=== PATIENT | female | born 1970 | race Caucasian/White ===

== ENCOUNTER 2022-01-01 18:26 | Observation (INO) | payer OTHER, SELFPAY ==
--- NOTE | ~2022-01-01 | US_ITS ---
US abdomen limited INDICATION: PROCEDURE: Realtime right upper abdominal ultrasound. COMPARISON: No prior studies for comparison. FINDINGS: The pancreas is normal without focal mass or pancreatic ductal dilation. Liver echotexture is normal without focal mass or intrahepatic biliary dilatation. There is normal directional flow i n the portal vein. The gallbladder is normal without stones, gallbladder wall thickening or pericholecystic fluid. Comm on bile duct measures 3 mm. No sonographic Lamb's sign. IMPRESSION: 1: Normal limited abdominal ultrasound. Reviewed, dictated and finalized at location B.
--- NOTE | ~2022-01-01 | CT_ITS ---
EXAMINATION: CTA BRAIN/CAROTID DATE: 01/01/2022 19:31 INDICATION: Right facial numbness and right arm numbness. TECHNIQUE: Computed tomographic angiography (CTA) of the head and neck was performed with 100 mL Omni paque-350 intravenous contrast. Multiplanar reconstructions and maximum intensity projection 3D-recon structions of the carotid arteries and of the intracranial arteries were created by the technologist on a separate workstation. Automated exposure control and iterative reconstruction technique were emp loyed.The dose-length product was 1142.65 mGy-cm. COMPARISON: None. FINDINGS: Carotid arteries: Normal caliber of the visualized aortic arch with no dissection. No evident atherosclerotic plaque al carlita the common, internal and external carotid arteries. There is 0% stenosis of the right and left ca rotid bulbs relative to normal distal artery lumen diameter (NASCET criteria). Bilateral vertebral ar teries are codominant with small amount of atherosclerotic plaque without hemodynamically significant stenosis along the extrarenal left vertebral artery. Likely benign 4 mm right thyroid nodule. Cervic al soft tissues are otherwise unremarkable. Visualized portions of the bilateral mid to upper lungs a re clear. Mild cervical spondylosis. Intracranial arteries There is no hemodynamically significant stenosis in the vertebral, basilar and internal carotid arter ies. Vertebral arteries are codominant. There are no aneurysms identified. Both A1 and P1 segments a re patent. Cerebral arterial arborization appears symmetric. No abnormally enhancing brain lesions i dentified. IMPRESSION: 1. No evident atherosclerotic disease along the bilateral carotid arteries with 0% stenosis of the le ft carotid bulbs relative to normal distal artery lumen diameter (NASCET criteria). 2. Normal cerebral CT angiogram with no significant stenosis, aneurysm or dissection. Reviewed, dictated and finalized at location A. IMPRESSION: 1. No evident atherosclerotic disease along the bilateral carotid arteries with 0% stenosis of the left carotid bulbs relative to normal distal artery lumen d iameter (NASCET criteria). 2. Normal cerebral CT angiogram with no significant stenosis, aneurysm or disse ction.
--- NOTE | ~2022-01-01 | MR_ITS ---
EXAMINATION: MR brain/brain stem wo con DATE: 01/02/2022 12:21 INDICATION: Paresthesias. TECHNIQUE: Magnetic resonance imaging (MRI) of the brain and brainstem was performed without intraven ous contrast. COMPARISON: Head CT 01/01/2022 FINDINGS: There are scattered areas of nonspecific increased T2-weighted signal intensity in the cere bral white matter and jase. There is no intracranial hemorrhage, acute infarction, or abnormal intrac ranial mass lesion. The ventricles are normal in size. The paranasal sinuses are clear. The orbits ar e normal. The mastoid air cells are normal. IMPRESSION: 1. Mild nonspecific cerebral white matter disease and pontine disease, which likely represents chroni c small vessel ischemic disease. Reviewed, dictated and finalized at location A. IMPRESSION: 1. Mild nonspecific cerebral white matter disease and pontine disease, which evon pacheco represents chronic small vessel ischemic disease.
--- NOTE | ~2022-01-01 | XR_ITS ---
EXAMINATION: XR chest 1V portable DATE: 01/01/2022 19:06 INDICATION: Stroke symptoms with headache and right arm weakness TECHNIQUE: frontal view of the chest was obtained. COMPARISON: Chest radiograph dated 08/04/2017 FINDINGS: The lungs remain clear with no focal airspace opacities, pulmonary edema, pleural effusion or pneumot horax. The cardiomediastinal silhouette is normal. Mild thoracic spondylosis. IMPRESSION: 1. No acute cardiopulmonary disease. Reviewed, dictated and finalized at location A.
--- NOTE | ~2022-01-01 | CT_ITS ---
EXAMINATION: CT brain wo con DATE: 01/01/2022 18:38 INDICATION: Stroke with headache and right arm weakness TECHNIQUE: Computed tomography (CT) of the head was performed without intravenous contrast. Sagittal and coronal reconstructions were performed. The mA was adjusted according to patient size. Iterative reconstruction technique was employed. The dose-length product was 605.33 mGy-cm. COMPARISON: None FINDINGS: No acute intracranial hemorrhage, acute infarction or abnormal extra axial fluid collection. There is mild scattered white matter hypoattenuation consistent with chronic small vessel ischemic disease. V entricles are normal and symmetric. No mass/mass effect. The orbits, paranasal sinuses and mastoid ai r cells are normal. IMPRESSION: 1. Mild scattered white matter hypoattenuation consistent with chronic small vessel ischemic disease. No acute intracranial process. Reviewed, dictated and finalized at location A. IMPRESSION: 1. Mild scattered white matter hypoattenuation consistent with chronic small ve ssel ischemic disease. No acute intracranial process.
--- NOTE | 2022-01-01 18:29 | ECG_ITS ---
Measurements Intervals [place] Rate: 81 P: 68 TN: 172 QRS: 21 QRSD: 94 T: 54 QT: 374 QTc: 436 Interpretive Statements SINUS RHYTHM BASELINE ARTIFACT- II, V5 NORMAL ECG NO PREVIOUS ECG AVAILABLE FOR COMPARISON Electronically Signed On 01-01-2022 20:17:30 CDT by Berto Oleary D.O.
[2022-01-01 18:37] VITALS: BP 217/134; PULSE 96; RESP 13; O2SAT 100
[2022-01-01 18:39] LABS: Glucose Point of Care 78 mg/dl (65-105)
[2022-01-01 19:03] LABS: Basophils Absolute Auto 0.1 K/mm3 (0.0-0.1); Basophils Percent Auto 1.4 % (0.2-1.2); Eosinophils Absolute Auto 0.1 K/mm3 (0-0.3); Eosinophils Percent Auto 1.6 % (0-4.4); Hematocrit 41.5 % (37.0-47.0); Hemoglobin 14.4 g/dL (12.0-15.0); Immature Granulocyte Absolute 0.01 K/mm3 (0.00-0.031); Immature Granulocyte Percent A 0.2 % (0-0.5); Lymphocytes Absolute Auto 2.52 K/mm3 (0.9-3.2); Lymphocytes Percent Auto 51.3 % (18.3-44.2); Mean Corpuscular HGB Conc 34.7 g/dl (32-36); Mean Corpuscular Hemoglobin 35.4 pg (26-34); Mean Platelet Volume 9.6 fl (7.4-10.4); Monocytes Absolute Auto 0.4 K/mm3 (0.1-0.6); Monocytes Percent Auto 7.5 % (2.6-8.5); Neutrophils Absolute Auto 1.9 K/mm3 (1.3-6.7); Platelet Count Result 200 k/mm3 (150-375); Red Blood Count 4.07 M/mm3 (4.2-5.4); Red Cell Distribution Width 12.5 % (11.5-14.5); White Blood Count 4.9 K/mm3 (4.5-10.0)
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
[2022-01-01 19:13] LABS: Alanine Aminotransferase 118 U/L (6-35); Albumin Level 5.2 g/dL (3.5-5.1); Alkaline Phosphatase 98 U/L (38-126); Anion Gap 18 mmol/L (8-16); Aspartate Amino Transferase 174 U/L (14-36); Bilirubin,Total 0.6 mg/dL (0.2-1.3); Blood Urea Nitrogen 10 mg/dL (7-17); Calcium 9.9 mg/dL (8.4-10.2); Carbon Dioxide 26 mmol/L (22-30); Chloride 98 mmol/L (98-107); Estimated CRCL calculation 95 ml/min; Estimated Glomerular Filt Rate > 60; Glucose 89 mg/dL (65-110); Potassium 3.6 mmol/L (3.4-5.0); Sodium 142 mmol/L (137-145)
[2022-01-01 19:18] LABS: INR 0.9; Prothrombin Time 12.2 Seconds (11.1-14.7)
[2022-01-01 19:19] LABS: Partial Thromboplastin Time 31.8 SECONDS (22.3-36.8)
[2022-01-01 19:24] LABS: Troponin I < 0.012 ng/mL (0.000-0.034)
[2022-01-01] MEDS: ASPIRIN 325 MG TABLET PO (20:23)
--- NOTE | 2022-01-01 21:37 | PM.IMHP ---
H&P: HPI History of Present Illness Date/Time: 01/01/22 21:37 Chief Complaint: paresthesias Narrative: This is a 51-year-old female with past medical history significant for hypertension however patient is not on any medications, adult attention deficit hyperactivity disorder on Adderall, tobacco dependence, alcohol abuse. patient presents to the emergency room after his she was at work when she had an episode of right arm numbness with tingling as well as the right side of her face went numb, she felt flushed as well, patient has been in her usual state of health up until this moment, denies any speech disturbance, any changes in vision, any focal weakness, no syncope, or near syncope, patient denies any chest pain, palpitations, no leg swelling, no pedal swelling, a states that she has been eating a lot of salt, denies any nausea, vomiting, abdominal pain. Preliminary workup was significant for MCV 102, AST/ALT 174/118, Alk-phos 98 total protein 9, albumin 5.2. a CT of the head was reported as: IMPRESSION: 1. Mild scattered white matter hypoattenuation consistent with chronic small vessel ischemic disease. No acute intracranial process. chest x-ray was reported as: IMPRESSION: 1. No acute cardiopulmonary disease. CTA of head and neck was reported as: IMPRESSION: 1. No evident atherosclerotic disease along the bilateral carotid arteries with 0% stenosis of the left carotid bulbs relative to normal distal artery lumen diameter (NASCET criteria). 2. Normal cerebral CT angiogram with no significant stenosis, aneurysm or dissection. Review of Systems Review of Systems: right-sided numbness tingling in of the arm and face ,flushed. Constitutional: Constitutional: Denies chills, Denies fatigue, Denies fever(s), Denies lethargy, Denies malaise, Denies night sweats, Denies poor appetite and Denies weakness Eyes: Eyes: Denies change in vision ENT: Denies dysphagia, Denies vertigo, Denies dizziness, Denies odynophagia and Denies disequilibrium Cardiovascular: Cardiovascular: Denies chest pain, Denies syncope, Denies edema, Denies irregular heart rhythm, Denies lightheadedness, Denies palpitations and Denies dyspnea on exertion Respiratory: Respiratory: Denies chest congestion, Denies cough, Denies excessive phlegm production, Denies pain on inspiration, Denies dyspnea and Denies dyspnea on exertion Gastrointestinal: Gastrointestinal: Denies abdominal pain, Denies dyspepsia, Denies heartburn, Denies nausea and Denies vomiting Genitourinary: Genitourinary: Denies dysuria Musculoskeletal: Musculoskeletal: Denies back pain, Denies myalgias, Denies arthralgias, Denies joint swelling and Denies muscle weakness Integumentary/Breasts: Skin/Breast: Denies rash Neurologic: Denies vertigo, Denies dizziness, Denies focal weakness, Reports numbness, Reports tingling and Reports paresthesias Psychiatric: Psychiatric: Reports no additional psychiatric complaints and Reports as per HPI Endocrine: Endocrine: Denies cold intolerance, Denies flushing, Denies heat intolerance, Denies polyphagia, Denies polydipsia and Denies palpitations Hematologic/Lymphatic: Hematologic/Lymphatic: Reports no additional hematologic/lymphatic complaints and Reports as per HPI Allergic/Immunologic: Allergic/Immunologic: Reports no additional allergic/immunologic complaints and Reports as per HPI PMFSH Past Medical History Medical History HTN (hypertension) Surgical History Surgical History S/P skin biopsy Social History Social History Smoking packs per day: 0.5 Smoking cigarettes per day: 10.0 Years smoked: 40 Smoking pack-years: 20.00 Smoking status: Current every day smoker Tobacco type: cigarettes Alcohol intake: current Drinks per week: 5 Substance use: nevphuc
[2022-01-01 22:00] VITALS: BP 189/109; PULSE 86; RESP 18; TEMP 36.9; O2SAT 95
[2022-01-01 22:05] VITALS: BMI 21.8
[2022-01-01 22:25] VITALS: PULSE 89
--- NOTE | 2022-01-01 22:28 | PC.NURSE ---
This patient, Erin Tatum, was admitted to Medical Room 340-01. Patient/family oriented to hospital policies and general routines including ID bracelet, bed and alarms, visiting hours, pain management, procedures, bathroom and other care routines, personal items, smoking policy, room service/diet, and visiting hours. Information on how to activate the Rapid Response Team has been discussed. Patient/Family are encouraged to report perceived risks to care and to ask questions if they do not understand what they are told or what they should do.
[2022-01-02] VITALS: PULSE 92
--- NOTE | 2022-01-02 | ECHO_ITS ---
Patient Info Name: Erin Tatum Age: 51 years : 1970 Gender: Female Ht: 65 in Wt: 131 lbs BSA: 1.65 m2 HR: 84 bpm BP: 159 / 90 mmHg Technical Quality: Good Exam Date: 01/02/2022 10:22 AM Exam Location: [facility] Patient Status: Outpatient Admit Date: 01/01/2022 Staff Ordering Physician: Theresa Gonzales MD Derrick Worker: Garth Lamb RDCS, RT Attending Provider: Meera Ross PA-C Referring Physician: Christian SEQUEIRA; Exam Type: CA echo doppler color flow Study Info Indications I10 - Essential (primary) hypertension Complete two-dimensional, color flow and Doppler transthoracic echocardiogram is performed. Strain analysis performed. Summary 1. Complete two-dimensional, color flow and Doppler transthoracic echocardiogram is performed. 2. Left ventricular chamber dimension is normal. 3. Left ventricular systolic function is normal, estimated at 60-65%. 4. The left ventricular diastolic function is grade I diastolic dysfunction. 5. E/e' 9 is minimally elevated. 6. Global longitudinal strain is mildly abnormal at -16.1%. Left Ventricle E/e' 9 is minimally elevated. Global longitudinal strain is mildly abnormal at -16.1%. Left ventricular chamber dimension is normal. Left ventricular systolic function is normal, estimated at 60-65%. The left ventricular diastolic function is grade I diastolic dysfunction. Right Ventricle Right ventricular chamber dimension is normal. Right ventricular systolic function is normal. Left Atria Left atrial chamber dimension is normal. Right Atria Right atrial chamber dimension is normal. Aortic Valve The aortic valve is trileaflet. There is no aortic valve stenosis. There is no aortic valve regurgitation. Pulmonic Valve There is no pulmonic regurgitation. Mitral Valve There is no mitral valve stenosis. There is no mitral valve regurgitation. Tricuspid Valve There is no tricuspid valve regurgitation. Pericardium/Pleural There is no pericardial effusion. Inferior Vena Cava Normal inferior vena cava with >50% collapse upon inspiration consistent with normal right atrial pressure, 5 mmHg. Aorta The aortic root size at the sinus of Valsalva is normal. Left Ventricular Outflow Tract Name Value Normal LVOT 2D LVOT Diameter 2.0 cm LVOT Doppler LVOT Peak Gradient 5 mmHg LVOT Mean Gradient 3 mmHg LVOT VTI 25 cm LVOT VTI/AV VTI Ratio 1.1 LVOT Stroke Volume 77 ml LVOT CO 6.1 l/min LVOT CI 3.7 l/min/m2 Mitral Valve Name Value Normal MV Doppler MV Decel Quay 364 cm/s2 MV PHT 55 ms MV
[2022-01-02 04:00] VITALS: PULSE 104
[2022-01-02 05:32] LABS: Ethanol 12 mg/dL (<10)
[2022-01-02 06:00] VITALS: BP 159/90; PULSE 88; RESP 18; TEMP 37; O2SAT 99
[2022-01-02 06:10] LABS: Appearance Urine Clear (Clear); Bilirubin Urine Negative (Negative); Blood Urine Negative (Negative); Color Urine Yellow (Yellow); Glucose Urine UA Negative (Negative); Ketones Urine Trace mg/dL (Negative); Leukocyte Esterase Ur Negative LEU/UL (Negative); Nitrate Urine Negative (Negative); Protein Urine Negative (Negative); Urobilinogen Urine 0.2 mg/dL (<2.0)
[2022-01-02 06:38] LABS: Bacteria Urine Trace /hpf; Mucus Urine Rare /lpf; RBC Urine 0-2 /hpf (0-2); WBC Urine 0-3 /hpf
[2022-01-02 06:40] LABS: Squamous Epithelial Cell Urine Rare /hpf (Few)
[2022-01-02 06:45] LABS: Add Urine Microscopic? YES
[2022-01-02 08:08] LABS: Hematocrit 39.4 % (37.0-47.0); Hemoglobin 13.5 g/dL (12.0-15.0); Mean Corpuscular HGB Conc 34.3 g/dl (32-36); Mean Corpuscular Hemoglobin 35.4 pg (26-34); Mean Corpuscular Volume 103.4 fl (80-100); Platelet Count Result 183 k/mm3 (150-375); Red Blood Count 3.81 M/mm3 (4.2-5.4); Red Cell Distribution Width 12.9 % (11.5-14.5); White Blood Count 4.1 K/mm3 (4.5-10.0)
[2022-01-02 08:13] LABS: Glucose Point of Care 106 mg/dl (65-105)
[2022-01-02 08:14] VITALS: O2SAT 95
[2022-01-02 08:16] LABS: Alanine Aminotransferase 100 U/L (6-35); Albumin Level 4.4 g/dL (3.5-5.1); Alkaline Phosphatase 77 U/L (38-126); Anion Gap 14 mmol/L (8-16); Aspartate Amino Transferase 140 U/L (14-36); Bilirubin,Total 0.5 mg/dL (0.2-1.3); Blood Urea Nitrogen 12 mg/dL (7-17); Calcium 9.6 mg/dL (8.4-10.2); Carbon Dioxide 24 mmol/L (22-30); Chloride 102 mmol/L (98-107); Estimated CRCL calculation 74 ml/min; Estimated Glomerular Filt Rate > 60; Glucose 92 mg/dL (65-110); Potassium 3.7 mmol/L (3.4-5.0); Sodium 140 mmol/L (137-145)
[2022-01-02 08:30] VITALS: PULSE 72
[2022-01-02] MEDS: ENOXAPARIN 40 MG/0.4 ML SYRINGE SUB-Q (09:15)
[2022-01-02 09:31] LABS: Hepatitis B Surface Antigen Negative (Negative)
[2022-01-02 09:37] LABS: HAV RESULT Negative (Negative); Hepatitis B Core IgM Result Negative (Negative)
[2022-01-02 09:49] LABS: Hepatitis C Virus Antibody Negative (Negative)
[2022-01-02 12:59] LABS: Glucose Point of Care 112 mg/dl (65-105)
[2022-01-02 14:00] VITALS: BP 155/84; PULSE 85; RESP 20; TEMP 36.7; O2SAT 98
--- NOTE | 2022-01-02 14:14 | WPDNEURCNPN ---
Assessment and Plan Assessment and plan (1) Right facial numbness: Code(s): R20.0 - Anesthesia of skin Status: Acute (2) Numbness and tingling in right hand: Code(s): R20.0 - Anesthesia of skin; R20.2 - Paresthesia of skin Status: Acute Assessment and Plan: Ms. Tatum is a 51 year old female with a history of HTN who presented with R facial and RUE numbness. MRI negative for acute stroke. CTA, EKG, surface echo all unremarkable. Symptoms likely secondary to TIA. - Continue ASA 81mg daily - Discussed importance of smoking cessation - No further inpatient work-up needed Consult date: 01/02/22 Time Seen: 14:14 Reason for consult: TIA HPI: Erin Tatum is a 51 year old female with a history of HTN, ADHD, smoking who presented from work yesterday with right face and upper extremity numbness. This occured while she was at work. Last known well was 3:30 PM on 01/01/22. She did not have any focal weakness, changes in her speech or vision. She was evaluated in [place] ED. She had an NIH score of [address] head and CTA were both unremarkable. tPA was not administered due to non-disabling symptoms. Her symptoms lasted about 2 hours. She had an MRI brain this morning that showed small vessel disease but no evidence of acute infarct. EKG and echo were unremarkable as well. She is currently on ASA. HgbA1c and lipid profile were within normal range. She denies any residual numbness today. Review of Systems Constitutional: Constitutional: Reports no additional constitutional complaints Eyes: Eyes: Reports no additional eye complaints ENT: Reports system reviewed and no additional complaints, except as documented Cardiovascular: Cardiovascular: Reports no additional cardiovascular complaints Respiratory: Respiratory: Reports no additional respiratory complaints Gastrointestinal: Gastrointestinal: Reports no additional gastrointestinal complaints Genitourinary: Genitourinary: Reports no additional female genitourinary complaints Musculoskeletal: Musculoskeletal: Reports no additional musculoskeletal complaints Integumentary/Breasts: Skin/Breast: Reports system reviewed and no additional complaints, except as docu Neurologic: Reports system reviewed and no additional complaints, except as documented Psychiatric: Psychiatric: Reports no additional psychiatric complaints [facility] Past Medical History Medical History HTN (hypertension) Surgical History Surgical History S/P skin biopsy Social History Social History Smoking packs per day: 0.5 Smoking cigarettes per day: 10.0 Years smoked: 40 Smoking pack-years: 20.00 Smoking status: Current every day smoker Tobacco type: cigarettes Alcohol intake: current Drinks per week: 5 Substance use: never Spiritual care concerns: No Meds Home Medications and Allergies Home Medications Medication Instructions Recorded Confirmed Type dextroamphetamine-amphetamine 20 20 mg PO TID 01/01/22 01/01/22 History mg tablet (Adderall) Allergies Allergy/AdvReac Type Severity Reaction Status Date / Time fluticasone Allergy Unknown Hives Verified 01/01/22 18:52 Vital Signs Vital Signs - 24 hr 01/01/22 18:37 01/01/22 22:25 01/01/22 22:00 Temperature 36.9 C Pulse Rate 96 89 86 Respiratory Rate 13 18 Blood Pressure 217/134 H 189/109 H Pulse Oximetry 100 95 Oxygen Delivery 01/01/22 22:36 01/02/22 00:00 01/02/22 04:00 Temperature Pulse Rate 92 104 H Respiratory Rate Blood Pressure Pulse Oximetry Oxygen Delivery Room Air 01/02/22 06:00 01/02/22 08:14 01/02/22 08:30 Temperature 37.0 C Pulse Rate 88 72 Respiratory Rate 18 Blood Pressure 159/90 H Pulse Oximetry 99 95 Oxygen Delivery Room Air 01/02/22 08:30
[2022-01-02 15:16] LABS: Hemoglobin A1C 5.1 % (<5.7); LDL Cholesterol Direct 64 mg/dL
[2022-01-02 15:26] LABS: Cholesterol 270 mg/dL (0-200); Triglycerides 111 mg/dL (<150)
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
[2022-01-02 15:55] LABS: HDL Direct 185 mg/dL
[2022-01-04 15:26] LABS: GGT 232 U/L (3-70)
[2022-01-07 06:45] LABS: Total Protein/Creatinine Ratio 121 mg/g creat (24-184)
== END 2022-01-02 16:47 | disposition home or self-care (01) ==
LOC: ANHED 20:22 → ANH3MED 22:54
PROVIDERS: Emergency Medicine; Physician Assistant; Admitting Provider Internal Medicine; Emergency Provider Emergency Medicine; PCP Internal Medicine; Visit Provider Family Medicine
DX: I16.1 Hypertensive emergency (principal); R74.8 Abnormal levels of other serum enzymes; R71.8 Other abnormality of red blood cells; D89.2 Hypergammaglobulinemia, unspecified; R20.0 Anesthesia of skin; R20.2 Paresthesia of skin; M25.519 Pain in unspecified shoulder; M54.2 Cervicalgia; R29.701 NIHSS score 1; R90.82 White matter disease, unspecified; I51.89 Other ill-defined heart diseases; G37.8 Other specified demyelinating diseases of central nervous system; F90.9 Attention-deficit hyperactivity disorder, unspecified type; F10.10 Alcohol abuse, uncomplicated; Y90.0 Blood alcohol level of less than 20 mg/100 ml; F17.210 Nicotine dependence, cigarettes, uncomplicated; Z79.899 Other long term (current) drug therapy
CPT/HCPCS: 36415; 70450; 70496; 70498; 70551; 71045; 76705; 80053; 80061; 80074; 80307; 81001; 82570; 82948; 82977; 83036; 84156; 84166; 84484; 85025; 85027; 85610; 85730; 93005; 93306; 96372; 99285; A9270; G0378; J1650; Q9967

== ENCOUNTER 2024-05-03 07:00 | Emergency (ER) | payer OTHER, SELFPAY ==
--- NOTE | ~2024-05-03 | CT_ITS ---
EXAMINATION: CT abdomen pelvis w con DATE: 05/03/2024 08:13 INDICATION: Lower abdominal pain with rectal bleeding TECHNIQUE: Computed tomography (CT) of the abdomen and pelvis was performed with 100 cc Omnipaque 350 intravenous contrast. The dose-length product was 230.36 mGy-cm. Automated exposure control and iter ative reconstruction technique were employed. COMPARISON: None. FINDINGS: Lung bases unremarkable. Heart size normal. No significant pleural or pericardial effusion. No vascular abnormality. Circumaortic left renal vein. Fatty infiltration of the liver. Gallbladder is present. The spleen, pancreas, adrenal glands and kid neys are unremarkable. No lymphadenopathy. Segmental thickening of the descending and sigmoid colon w ith surrounding fatty infiltration and fluid, consistent with colitis, most likely infectious or infl ammatory. Moderate free fluid in the pelvis. There are coarse calcifications along the margin of the uterus anteriorly, possibly exophytic fibroid changes. Normal appendix. No free air identified. IMPRESSION: 1. Thickened abnormal appearing colon involving the descending and sigmoid colon with surrounding inf lammation and fluid, consistent with colitis, most likely infectious/inflammatory. Reviewed, dictated and finalized at location A. [employer] IMPRESSION: 1. Thickened abnormal appearing colon involving the descending and sigmoid colo n with surrounding inflammation and fluid, consistent with colitis, most likely infectious/inflammatory.
--- OUTSIDE RECORDS SUMMARY | 2024-05-03 07:02 | XMS_ITS | Referral Summary ---
Author Organization [facility] Address [address] [place] [address] Care Team Providers Care White Metal Caster Name Role Phone Unavailable Primary Care Provider Unavailabl e Source Comments [facility],non-owned Affiliates and Associated Physician Practices is amultiple site organization consisting of ambulatory clinics and hospital sitesin [place], [place], [place] and [place]. This disclosure is being madepursuant to the Care Everywhere program and may not contain all information available regarding this patient. Last updated 17.[facility] [facility] Allergies No known active allergies Medications * Be aware that medications may not be up to date on this document. Alwaysverify current medications with the patient. Medication Sig Dispensed Refills Start Date End Date Status amphetamine-dextroamph etamine (ADDERALL) 20 MG tablet Take 20 mg by mouth every morning Active Social History Tobacco Use Types Packs/Day Years Used Date Smoking Tobacco: Every Day Cigarettes 0.5 20 Smokeless Tobacco: Never Sex and Gender Information Value Date Recorded Sex Assigned at Not on file Gender Identity Not on file Sexual Orientation Not on file Last Filed Vital Signs Vital Sign Reading Time Taken Comments Blood Pressure 145/92 09/06/2023 5:00 PM CDT Pulse 99 09/06/2023 2:33 PM CDT Temperature 36.9 ??C (98.4 ??F) 09/06/2023 2:33 PM CD T Respiratory Rate 18 09/06/2023 2:33 PM CDT Oxygen Saturation 98% 09/06/2023 4:13 PM CDT Inhaled Oxygen Concentration - - Weight 61.2 kg (135 lb) 09/06/2023 2:33 PM CDT Height 165.1 cm (5' 5 ) 09/06/2023 2:33 PM CDT Body Mass Index 22.47 09/06/2023 2:33 PM CDT Plan of Treatment Not on file
--- OUTSIDE RECORDS SUMMARY | 2024-05-03 07:02 | XMS_ITS | Clinical Summary ---
Author Organization [facility] Address [address] [place] [address] Care Team Providers Care Grocery Store Bagger Name Role Phone Unavailable Primary Care Provider Unavailabl e Source Comments [facility],non-owned Affiliates and Associated Physician Practices is amultiple site organization consisting of ambulatory clinics and hospital sitesin [place], [place], [place] and [place]. This disclosure is being madepursuant to the Care Everywhere program and may not contain all information available regarding this patient. Last updated 17.[employer] Allergies No known active allergies Medications * Be aware that medications may not be up to date on this document. Alwaysverify current medications with the patient. Medication Sig Dispensed Refills Start Date End Date Status amphetamine-dextroamph etamine (ADDERALL) 20 MG tablet Take 20 mg by mouth every morning Active Family History Medical History Relation Name Comments Cancer - Thyroid Father Cancer - Breast Sister Relation Name Status Comments Father Sister Social History Tobacco Use Types Packs/Day Years [...] 09/06/2023 2:33 PM CDT Plan of Treatment Health Maintenance Due Date Last Done Comments COLOGUARD (AGES 45-75) - COL ON CA SCREENING 1970 COLON MONITORING 1970 COLONOSCOPY - COLON CA SCREENING 1970 CT COLONOGRAPHY - COLON CA SCREENING 1970 Colorectal Cancer Screening 1970 FIT - COLON CA SCREENING 1970 FLEX SIG - COLON CA SCREENING 1970 LIPID TESTING 1970 PAP SMEAR 1970 HIV SCREENING 1985 HEPATITIS C SCREENING 06/26/1988 DTAP/TDAP/TD VACCINES (1 - Tdap) 1989 HEPATITIS B VACCINE (1 of 3 - 19+ 3-dose series) 1989 PNEUMOCOCCAL VACCINE 50+ (1 of 2 - PCV) 1989 PNEUMOCOCCAL VACCINE (1 of 2 - PCV) 1989 ZOSTER VACCINE (1 of 2) 2020 MAMMOGRAM 05/06/2023 05/06/2021 COVID-19 VACCINE (4 - 2023-2 5 season) 2023 03/02/2021, 06/18/2020, 05/27/2020 INFLUENZA VACCINE (#1) 2023 , 12/16/2019, 01/07/2015 DEPRESSION SCREENING 04/06/2024 HIB VACCINE Aged Out No longer eligi ble based on patient's age to complete this topic HPV VACCINE Aged Out No longer eligi ble based on patient's age to complete this topic MENINGOCOCCAL (Group B) VACCINE Aged Out No longer eligible b ased on patient's age to complete this topic MENINGOCOCCAL VACCINE Aged Out No antelmo bossman eligible based on patient's age to complete this topic
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
--- OUTSIDE RECORDS SUMMARY | 2024-05-03 07:02 | XMS_ITS | Clinical Summary ---
Author Organization [facility] Address [address] [place] [address]. [place], [place] [id number] [place] [address] Care Team Providers Care Ticket Collector Name Role Phone Dalia ORNELAS MD, Porsha Cote Primary Care Provider Allergies Active Allergy Reactions Criticality Noted Date Comments Neomycin Unknown Low 09/24/2017 Infection symptoms Silver Sulfadiazine Unknown Low 09/24/2017 Infection symptoms Medications amphetamine-dext roamphetamine 20 MG tablet Take 1 tablet (20 mg total) by mouth daily. Active multi vitamin/minerals (THERA-M ENHANCED) tablet Take 1 tablet by mouth daily. 30 tablet 09/24/2023 Active Active Problems Problem Noted Date Diagnosed Date Attention deficit hyperactiv ity disorder (ADHD), predominantly inattentive type 05/13/2023 History of melanoma 01/22/2023 Dyslipidemia 02/04/2021 Tobacco use 02/04/2021 Hypertension Immunizations Name Administration Dates Next Due Influenza Adult (Generic) 12/16/2019 Family History Medical History Relation Comments Breast Cancer Sister 1 Cancer Sister 1 Breast Cancer Sister 2 Relation Status Comments Sister 1 Sister 2 Social History Tobacco Use Types Packs/Day Years Used Date Smoking Tobacco: Every Day Cigarettes 0.3 25 Smokeless Tobacco: Never Tobacco Cessation:Ready to Q uit: No; Counseling Given: Yes Alcohol Use Standard Drinks/Week Comments Yes 0 (1 standard drink = 0.6 oz pur e alcohol) occasionally PHQ-2 Answer Date Recorded Patient Health Questionnaire-2 Score 0 05/13/2023 Comments No Sex and Gender Information Value Date Recorded Sex Assigned at Not on file Legal Sex Female 7:38 PM CDT Gender Identity Not on file Sexual Orientation Not on file Last Filed Vital Signs Vital Sign Reading Time Taken Comments Blood Pressure 197/107 09/24/2023 8:11 PM CDT Pulse 103 09/24/2023 8:11 PM CDT Temperature 36.8 ??C (98.2 ??F) 09/24/2023 8:11 PM CD T Respiratory Rate 22 09/24/2023 8:11 PM CDT Oxygen Saturation 98% 09/24/2023 8:11 PM CDT Inhaled Oxygen Concentration - - Weight 60.3 kg (132 lb 15 oz) 09/24/2023 8:11 PM CDT Height 165.1 cm (5' 5 ) 09/24/2023 8:11 PM CDT Body Mass Index 22.12 09/24/2023 8:11 PM CDT Plan of Treatment Health Maintenance Due Date Last Done Comments Colorectal Cancer Screening Colonoscopy (10 Years) 1970 Annual Physical 1973 Pneumococcal Vaccine: Pediatrics (0 to 5 Years) and At-Risk Patients (6 to 64 Years) (1 of 2 - PCV) 1976 Hepatitis C 1988 DTaP, Tdap and Td Vaccines ( 1 - Tdap) 1989 Hepatitis B Vaccines (1 of 3 - 19+ 3-dose series) 1989 Cervical Cancer Screening Pa p Smear (Age 30 to 64) Every 3 Years 07/19/2011 07/18/2008 Cervical Cancer Screening Pa p with HPV Testing (Age 30 to 64) Every 5 Years 01/30/2020 01/29/2015, 04/20/2012 Cervical Cancer Screening wi th HPV 01/30/2020 Zoster Vaccines (1 of 2) 2020 Mammogram Screening 05/06/2023 05/06/2021 COVID-19 Vaccine (3 - 2023-2 5 season) 2023 06/18/2020, 05/27/2020 Influenza Adult (#1) 2024 12/16/2019 PHQ-2 (Physician [place]) 04/06/2024 05/13/2023 PHQ-2 (Physician [place]) 05/13/2024 05/13/2023 Meningococcal B Vaccine Aged Out No l onger eligible based on patient's age to complete this topic Meningococcal Vaccine Aged Out No antelmo bossman eligible based on patient's age to complete this topic RSV Immunizations Under 20 Months Aged Out No longer eligible b ased on patient's age to complete this topic Procedures Procedure Name Priority Date/Time Associated Diagnosis Comments MG SCREENING W SRIRAM EVELYN DIGI Routine 05/06/2021 3:27 PM SMALL STOCK FACER Encounter for screening mammogram for malignant neoplasm of breast OUTSIDE CYTOPATH CERV/VAG INTERPRET (PAP) 01/29/2015 OUTSIDE CYTOPATH CERV/VAG INTERPRET (PAP) (SCAN ORDER) 07/18/2008 from Last 3 Months or Most Recently Relevant to Health Maintenance Results * MG SCREENING W SRIRAM EVELYN DIGI (05/06/2021 3:27 PM SMALL STOCK FACER) Anatomical Region Laterality Modality Breast Bilateral Mammography 05/06/2021 4:27 PM SMALL STOCK FACER Impressions 05/06/2021 4:28 PM SMALL STOCK FACER IMPRESSION: No suspicious mammographic findings. Recommendation: 1. Routine Screening, Bilateral Assessment: ACR BI-RADS 2 - BENIGN FINDING(S) Comments: A negative or benign mammography report should not delay follow-up or biopsy of a clinically significant finding or palpable abnormality. Regions of dense breast tissue may obscure findings on mammogram. Ordered By: PORSHA VARNER II Interpreted By: Porsha Rouse MD, 05/06/2021 4:27 PM Narrative 05/06/2021 4:28 PM SMALL STOCK FACER Examination: Screening bilateral mammogram with 3-D tomosynthesis Clinical history: Positive family history of breast cancer. ??No present breast related complaints. Comparison: None Technique: Digital screening mammography of both breasts was performed. 3-D tomosynthesis technique was also performed. This study was read with the assistance of computer-aided detection system. Tissue density: The breast tissue is heterogeneously dense, which may obscure small masses. Findings: No suspicious masses, malignant appearing calcifications, skin thickening or other abnormalities are present. ??No significant change from the prior exam. us Porsha Varner II, MD MAMMO Final R esult * OUTSIDE CYTOPATH VAG/CERV PAP WITH HPV (01/29/2015) 01/29/2015 Narrative 01/29/2015 Ordered by an unspecified provider. us Documents Scanned SCANNING Final Result * OUTSIDE CYTOPATH CERV/VAG INTERPRET (PAP) (07/18/2008) 07/18/2008 Narrative 07/18/2008 Ordered by an unspecified provider. us Documents Scanned SCANNING Final Result from Last 3 Months or Most Recently Relevant to Health Maintenance Insurance Care Teams Ticket Collector Relationship Specialty Start Date End Date Porsha Varner II, MD [address] [place] [id number] PCP - General FAMILY PRACTICE 01/02/22
--- OUTSIDE RECORDS SUMMARY | 2024-05-03 07:02 | XMS_ITS | Patient Health Summary ---
Author Organization [facility] Address [address] [place] [address] Care Team Providers Care Neuropsychology Director Name Role Phone Unavailable Primary Care Provider Unavailabl e Note from [facility],non-owned Affiliates and Associated Physician Practices is amultiple site organization consisting of ambulatory clinics and hospital sitesin [place], [place], [place] and [place]. This disclosure is being madepursuant to the Care Everywhere program and may not contain all information available regarding this patient. Last updated 17.[facility] Allergies No known active allergies Medications * Be aware that medications may not be up to date on this document. Alwaysverify current medications with the patient. * amphetamine-dextroamphetamine (ADDERALL) 20 MG tablet Take 20 mg by mouth every morning Social History Tobacco Use Types Packs/Day Years [...] Mass Index 22.47 09/06/2023 2:33 PM CDT Procedures * CARDIAC EKG ORDER(Performed 09/08/2023) * TROPONIN-I HIGH SENSITIVE REFLEX 1HOUR(Performed 09/06/2023) * EKG 12-LEAD(Performed 09/06/2023) Performed for Fall, initial encounter * B-TYPE NATRIURETIC PEPTIDE(Performed 09/06/2023) * TROPONIN-I HIGH SENSITIVE BASELINE + 1HR(Performed 09/06/2023) * CBC W AUTO DIFFERENTIAL(Performed 09/06/2023) * COMPREHENSIVE METABOLIC PANEL(Performed 09/06/2023) * XR CHEST 1VW PORTABLE(Performed 09/06/2023) Performed for Fall, initial encounter * XR PELVIS 1 OR 2VW(Performed 09/06/2023) Performed for Fall, initial encounter * CT CERVICAL SPINE WO CONTRAST(Performed 09/06/2023) Performed for Fall, initial encounter * CT HEAD WO CONTRAST(Performed 09/06/2023) Performed for Fall, initial encounter * INFLUENZA A+B - POINT OF CARE (AMB)(Performed 02/25/2017) Performed for Acute URI * STREP A SCREEN - POINT OF CARE (AMB) STL(Performed 06/25/2016) Performed for Acute pharyngitis, unspecified etiology * DERMATOPATHOLOGY(Performed 02/12/2016) * DERMATOPATHOLOGY(Performed 10/24/2014) * DERMATOPATHOLOGY(Performed 10/17/2014) Results * CARDIAC EKG ORDER (09/08/2023 12:00 PM CDT) Narrative 09/08/2023 12:00 PM CDT Ordered by an unspecified provider. Scanned Document CARDIAC SERVICES ORD ERABLES * TROPONIN-I HIGH SENSITIVE REFLEX 1HOUR (09/06/2023 5:36 PM CDT) Troponin I High Sensitive 5 <=14 ng/L 09/06/2023 6:18 PM CDT [facility] Delta Troponin I HS 09/06/2023 6:18 PM CDT [facility] Comment:Delta value intentio honey not calculated. Baseline to 1 hour specimen collection interval exceeded. Blood BLOOD SPECIMEN / Unknown Venipuncture / Unknown 09/06/2023 5:36 PM CDT 09/06/2023 5:41 PM CDT Chelsy Fish MD LAB - CHEMISTRY IQRA MCDANIEL Performing Organization Address [facility] Co de Phone Number [facility] [address] [place] [address], [place] [phone] * EKG 12-LEAD (09/06/2023 5:28 PM CDT) [facility] Ventricular Rate 85 BPM [facility] MUSE Atrial Rate 85 BPM [facility] MUSE P-R Interval 184 ms [facility] M[facility] QRS Duration ms 84 ms [facility] MUSE Q-T Interval ms 376 ms [facility] MUSE QTC Calculation (Bezet) 447 ms SL MUSE Calculated P [place] 72 degrees SL MUSE Calculated R [place] 48 degrees [facility] MUSE Calculated T [place] 59 degrees [facility] MUSE Interpretation EKG NORMAL SINUS RHYTHM POSSIBLE LEFT ATRIAL ENLARGEMENT BORDERLINE ECG NO PREVIOUS ECGS AVAILABLE Confirmed by JENNIFER WALLACE, MARTHA ([id number]) on 09/21/2023 9:08:42 AM [facility] 09/06/2023 5:28 PM CDT 09/21/2023 9:08 AM CDT Chelsy Fish MD ECG ORDERABLES Performing Organization Address [facility] de Phone Number [facility] * TROPONIN-I HIGH SENSITIVE BASELINE + 1HR (09/06/2023 4:44 PM CDT) [facility] Troponin I High Sensitive 4 <=14 ng/L 09/06/2023 5:22 PM CDT [facility] Blood BLOOD SPECIMEN / Unknown Venipuncture / Unknown 09/06/2023 4:44 PM CDT 09/06/2023 4:48 PM CDT Chelsy Fish MD LAB - CHEMISTRY IQRA MCDANIEL Performing Organization Address [facility] Co de Phone Number [facility] [address] [place] [address], [place] [phone] * (ABNORMAL) CBC W AUTO DIFFERENTIAL (09/06/2023 4:44 PM [facility]) [facility] WBC 4.9 4.0 - 10.7 x10E9/L 09/06/2023 4:57 PM [facility] RBC Count 3.98 3.90 - 5.20 x10E12/L 09/06/2023 4:57 PM [facility] Hemoglobin 13.7 11.9 - 15.8 g/dL 09/06/2023 4:57 PM [facility] Hematocrit 39.2 34.8 - 46.1 % 09/06/2023 4:57 PM [facility] MCV 98.5(H) 80.0 - 98.0 fL 09/06/2023 4:57 PM [facility] MCH 34.4(H) 26.7 - 33.6 pg 09/06/2023 4:57 PM [facility] MCHC 34.9 31.7 - 36.3 g/dL 09/06/2023 4:57 PM [facility] RDW-CV 12.2 11.3 - 14.8 % 09/06/2023 4:57 PM [facility] Platelet Count 149(L) 150 - 420 x10E9/L 09/06/2023 4:57 PM [facility] MPV 9.2 7.8 - 11.4 fL 09/06/2023 4:57 PM [facility] Neutrophil % 52.1 41.0 - 74.0 % 09/06/2023 4:57 PM [facility] Lymphocyte % 39.0 17.0 - 47.0 % 09/06/2023 4:57 PM [facility] Monocyte % 6.7 3.0 - 11.0 % 09/06/2023 4:57 PM [facility] Eosinophil % 1.0 0.0 - 7.0 % 09/06/2023 4:57 PM [facility] Basophil % 1.0 0.0 - 1.6 % 09/06/2023 4:57 PM [facility] Immature Granulocytes % 0.2 0.0 - 1.0 % 09/06/2023 4:57 PM CDT [facility] Neutrophil Absolute 2.56 1.60 - 7.50 x10E9/L 09/06/2023 4:57 PM CDT [facility] Lymphocyte Absolute 1.92 1.00 - 4.40 x10E9/L 09/06/2023 4:57 PM CDT [facility] Monocyte Absolute 0.33 0.15 - 1.00 x10E9/L 09/06/2023 4:57 PM CDT [facility] Eosinophil Absolute 0.05 0.00 - 0.60 x10E9/L 09/06/2023 4:57 PM CDT [facility] Basophil Absolute 0.05 0.00 - 0.13 x10E9/L 09/06/2023 4:57 PM [facility] Blood BLOOD SPECIMEN / Unknown Venipuncture / Unknown 09/06/2023 4:44 PM CDT 09/06/2023 4:48 PM CDT Chelsy Fish MD LAB - HEMATOLOGY ORD ERABLES [facility] [address] [place] [address], [facility] [phone] * B-TYPE NATRIURETIC PEPTIDE (09/06/2023 4:44 PM CDT) BNP 35 <100 pg/mL 09/06/2023 5:21 PM CDT [facility] Comment: A decision threshold of 100 pg/mL has been demonstrated to provide the maximal combination of sensitivity, specificity and predictive value for the diagnosis of congestive heart failure (CHF). ??Virtually all patients with no evidence of CHF have BNP values less than 100 pg/mL. A BNP value greater than 100 pg/mL is consistent with the diagnosis of CHF in the appropriate clinical setting. In a study of 693 patients (male and female) with diagnosed CHF, the following values were determined based on the NYHA functional classification system: NYHA Functional Class ?Mean Valule (pg/mL) ? % >100 pg/mL ?I ?320 ? 58.1 ?II ? 432 ? 73.0 ?III ?656 ? 79.0 ?IV ?1635 ? 98.3 ? Blood BLOOD SPECIMEN / Unknown Venipuncture / Unknown 09/06/2023 4:44 PM CDT 09/06/2023 4:49 PM CDT Chelsy Fish MD LAB - CHEMISTRY IQRA MCDANIEL [facility] Organization Address [facility] de Phone Number [facility] [address] [place] [address], [place] [phone] * (ABNORMAL) COMPREHENSIVE METABOLIC PANEL (09/06/2023 4:44 PM CDT) BUN 9 7 - 26 mg/dL 09/06/2023 5:15 PM CDT [facility] Creatinine 0.57 0.56 - 0.96 mg/dL 09/06/2023 5:15 PM CDT [facility] Sodium 145 136 - 145 mmol/L 09/06/2023 5:15 PM CDT [facility] Potassium 3.6 3.5 - 4.5 mmol/L 09/06/2023 5:15 PM [facility] Chloride 109(H) 98 - 107 mmol/L 09/06/2023 5:15 PM [facility] CO2 23 22 - 29 mmol/L 09/06/2023 5:15 PM [facility] Glucose 93 70 - 115 mg/dL 09/06/2023 5:15 PM [facility] Calcium 9.1 8.4 - 10.2 mg/dL 09/06/2023 5:15 PM [facility] Protein Total 7.6 6.0 - 8.3 g/dL 09/06/2023 5:15 PM [facility] Albumin 4.1 3.4 - 5.0 g/dL 09/06/2023 5:15 PM [facility] Bilirubin Total 0.4 0.2 - 1.2 mg/dL 09/06/2023 5:15 PM [facility] Alkaline Phosphatase 89 40 - 150 U/L 09/06/2023 5:15 PM [facility] ALT 101(H) 5 - 55 U/L 09/06/2023 5:15 PM [facility] AST 131(H) 5 - 34 U/L 09/06/2023 5:15 PM [facility] Anion Gap 13 6 - 16 09/06/2023 5:15 PM [facility] BUN/Creatinine Ratio 16 7 - 23 09/06/2023 5:15 PM [facility] Osmolality Calculated 298(H) 275 - 295 mOsm/kg 09/06/2023 5:15 PM [facility] Albumin/Globulin Ratio 1.2 1.1 - 2.3 09/06/2023 5:15 PM [facility] eGFR by CKD-EPI >90 >=90 mL/min/1.7 3 m2 09/06/2023 5:15 PM [facility] Blood BLOOD SPECIMEN / Unknown Venipuncture / Unknown 09/06/2023 4:44 PM CDT 09/06/2023 4:48 PM T Chelsy Fish MD LAB - CHEMISTRY ORDE VIOLETA [facility] Organization Address City/State/ZIP Co de Phone Number [facility] [address] [place] [address], [facility] [phone] * XR CHEST 1VW PORTABLE (09/06/2023 4:15 PM CDT) Anatomical Region Laterality Modality Chest Radiographic Nuzhat ging 09/06/2023 4:35 PM CDT Narrative 09/07/2023 12:16 AM CDT PROCEDURE: ??XR CHEST 1VW PORTABLE, DATE/TIME OF EXAM: ??09/06/2023 4:15 PM, LOCATION ??[facility] INDICATION: W19.XXXA: Fall, initial encounter ADDITIONAL CLINICAL INFORMATION: Ordering Provider Reason For Exam: ???PTX, ? cardiomegaly Technologist Note: Additional: COMPARISON: None. FINDINGS/IMPRESSION: No focal consolidation, pneumothorax, or pleural effusion. The cardiomediastinal silhouette is normal. No displaced fractures identified. Report dictated by Vanesa Munoz Dr, MD (residential care officer). Luis Angel Lezama MD have personally reviewed and interpreted this examination/study. > Interpreting Provider: Luis Angel Cabral MD on 09/07/2023 12:16 AM Procedure Note Luis Angel Cabral MD - 09/07/2023 PROCEDURE: XR CHEST 1VW PORTABLE, DATE/TIME OF EXAM: 09/06/2023 4:15 PM, LOCATION [facility] INDICATION: W19.XXXA: Fall, initial encounter ADDITIONAL CLINICAL INFORMATION: Ordering Provider Reason For Exam: ?PTX, ? cardiomegaly Technologist Note: Additional: COMPARISON: None. FINDINGS/IMPRESSION: No focal consolidation, pneumothorax, or pleural effusion. The cardiomediastinal silhouette is normal. No displaced fracturesidentified. Report dictated by Vanesa Munoz Dr, MD (residential care officer). Luis Angel Lezama MD have personally reviewed and interpreted this examination/study. > Interpreting Provider: Luis Angel Cabral MD on 09/07/2023 12:16 AM Chelsy Fish MD DIAGNOSTIC IMAGING O RDERABLES * XR PELVIS 1 OR 2VW (09/06/2023 4:15 PM CDT) Anatomical Region Laterality Modality Pelvis Radiographic Nuzhat ging 09/06/2023 4:34 PM CDT Impressions 09/07/2023 12:17 AM CDT IMPRESSION: No acute fracture identified. Report dictated by Vanesa Munoz Dr, MD (residential care officer). Luis Angel Lezama MD have personally reviewed and interpreted this examination/study. > Interpreting Provider: Luis Angel Cabral MD on 09/07/2023 12:17 AM Narrative 09/07/2023 12:17 AM CDT PROCEDURE: ??XR PELVIS 1 OR 2VW, DATE/TIME OF EXAM: ??09/06/2023 4:15 PM, LOCATION ??[facility] INDICATION: W19.XXXA: Fall, initial encounter ADDITIONAL CLINICAL INFORMATION: Ordering Provider Reason For Exam: ???fx Technologist Note: Additional: COMPARISON: None. FINDINGS: No acute fracture is identified. The femoral heads appear well-seated within their respective acetabula. The pubic symphysis is intact. Bone density and texture are normal. The sacroiliac joints are normal. Procedure Note Luis Angel Cabral MD - 09/07/2023 PROCEDURE: XR PELVIS 1 OR 2VW, DATE/TIME OF EXAM: 09/06/2023 4:15 PM, LOCATION [facility] INDICATION: W19.XXXA: Fall, initial encounter ADDITIONAL CLINICAL INFORMATION: Ordering Provider Reason For Exam: ?fx Technologist Note: Additional: COMPARISON: None. FINDINGS: No acute fracture is identified. The femoral heads appear well-seated within their respective acetabula. The pubic symphysis is intact. Bone density and texture are normal. The sacroiliac joints are normal. IMPRESSION: No acute fracture identified. Report dictated by Vanesa Munoz Dr, MD (residential care officer). Luis Angel Lezama MD have personally reviewed and interpreted this examination/study. > Interpreting Provider: Luis Angel Cabral MD on 09/07/2023 12:17 AM Chelsy Fish MD DIAGNOSTIC IMAGING O RDERABLES * CT CERVICAL SPINE WO CONTRAST (09/06/2023 3:15 PM CDT) Anatomical Region Laterality Modality Spine Computed Tomogra phy 09/06/2023 3:54 PM CDT Impressions 09/06/2023 4:13 PM CDT IMPRESSION: 1.No acute intracranial hemorrhage, midline shift, or significant mass effect. 2.Large left parietal scalp soft tissue swelling/hematoma and overlaying the secretions.. 3.No evidence of acute fracture in the cervical spine. The report is dictated by Vanesa Munoz Dr, MD (residential care officer) I, Salomon Dumas MD have personally reviewed and interpreted this examination/study. > Interpreting Provider: Salomon Dumas MD on 09/06/2023 4:13 PM Narrative 09/06/2023 4:13 PM CDT PROCEDURE: ??CT HEAD WO CONTRAST, CT CERVICAL SPINE WO CONTRAST, DATE/TIME OF EXAM: ??09/06/2023 3:36 PM, LOCATION ??[facility] INDICATION: W19.XXXA: Fall, initial encounter EXAMINATION: 1.Computed tomography (CT) of the head without contrast 2.CT of the cervical spine without contrast ADDITIONAL CLINICAL INFORMATION: Ordering Provider Reason For Exam: ??Fall, hematoma to head (accession [id number]), fall, syncope (accession [id number]) Technologist Note: ??None. Additional: ??None. TECHNIQUE: CT of the head and cervical spine was performed without contrast according to standard protocol. CT dose reduction technique was used, including Automated Exposure Control. COMPARISON: No prior study is available for comparison at the time of this dictation. FINDINGS: Head: No acute intra- or extra-axial fluid collections are identified. There is mild cerebral volume loss with associated ex vacuo ventricular dilatation. The basilar cisterns are patent. No mass effect or midline shift is seen. The ansari-white matter differentiation is normal. Periventricular white matter hypoattenuation is indicative of chronic small vessel ischemic disease. There is vascular calcification of the carotid siphons. Fat density within the superior orbital fissures may represent bilateral lipomas. Tiny fat densities in the supravermian cistern compatible with a small lipoma, extending along the medial falx bilaterally. No acute calvarial fracture is identified. The orbits appear normal. The paranasal sinuses are clear. The mastoid air cells are clear. No soft tissue abnormality is identified. There is a large left parietal soft tissue swelling/hematoma measuring up to 0.0 cm in thickness, (3, image 25), with overlaying skin lacerations. No underlying osseous fracture is identified. Cervical spine: There is gentle cervical kyphosis. Vertebral bodies are normal in height without evidence of acute fracture. Other than middle atlantoaxial joint osteoarthritis, the craniocervical junction appears normal. There is mild degenerative disc disease. Borderline developmental cervical spinal canal stenosis and superimposed multilevel degenerative disc disease, without high-grade spinal canal stenosis. There are varying degrees of mild facet osteoarthritis. There are varying degrees of mild uncovertebral joint osteoarthritis with the same degree of neural foraminal stenosis at these levels. No soft tissue abnormality is identified. Procedure Note Salomon Dumas MD - 09/06/2023 PROCEDURE: CT HEAD WO CONTRAST, CT CERVICAL SPINE WO CONTRAST,DATE/TIME OF EXAM: 09/06/2023 3:36 PM, LOCATION [facility] INDICATION: W19.XXXA: Fall, initial encounter EXAMINATION: 1.Computed tomography (CT) of the head without contrast 2.CT of the cervical spine without contrast ADDITIONAL CLINICAL INFORMATION: Ordering Provider Reason For Exam: Fall, hematoma to head (accession [id number]), fall, syncope (accession [id number]) Technologist Note: None. Additional: None. TECHNIQUE: CT of the head and cervical spine was performed withoutcontrast according to standard protocol. CT dose reduction technique was used, including Automated Exposure Control. COMPARISON: No prior study is available for comparison at the time ofthis dictation. FINDINGS: Head: No acute intra- or extra-axial fluid collections are identified. Thereis mild cerebral volume loss with associated ex vacuo ventriculardilatation. The basilar cisterns are patent. No mass effect or midline shift isseen. The ansari-white matter differentiation is normal. Periventricular white matter hypoattenuation is indicative of chronic small vessel ischemic disease. There is vascular calcification of the carotid siphons. Fat density within the superior orbital fissures may represent bilateral lipomas. Tiny fat densities in the supravermian cistern compatible witha small lipoma, extending along the medial falx bilaterally. No acute calvarial fracture is identified. The orbits appear normal. Theparanasal sinuses are clear. The mastoid air cells are clear. No soft tissue abnormality is identified. There is a large left parietal soft tissue swelling/hematoma measuring up to 0.0 cm in thickness, (3, image 25),with overlaying skin lacerations. No underlying osseous fracture isidentified. Cervical spine: There is gentle cervical kyphosis. Vertebral bodies are normal in height without evidence of acute fracture. Other than middle atlantoaxial joint osteoarthritis, the craniocervical junction appears normal. There ismild degenerative disc disease. Borderline developmental cervical spinalcanal stenosis and superimposed multilevel degenerative disc disease, without high-grade spinal canal stenosis. There are varying degrees of mildfacet osteoarthritis. There are varying degrees of mild uncovertebral joint osteoarthritis with the same degree of neural foraminal stenosis atthese levels. No soft tissue abnormality is identified. IMPRESSION: 1.No acute intracranial hemorrhage, midline shift, or significant mass effect. 2.Large left parietal scalp soft tissue swelling/hematoma and overlaying the secretions.. 3.No evidence of acute fracture in the cervical spine. The report is dictated by Vanesa Munoz Dr, MD (residential care officer) Salomon Lezama MD have personally reviewed and interpretedthis examination/study. > Interpreting Provider: Salomon Dumas MD on 09/06/2023 4:13 PM Chelsy Fish MD CT ORDERABLES * CT HEAD WO CONTRAST (09/06/2023 3:15 PM CDT) Anatomical Region Laterality Modality Head Computed Tomogra phy 09/06/2023 3:54 PM CDT Impressions 09/06/2023 4:13 PM CDT IMPRESSION: 1.No acute intracranial hemorrhage, midline shift, or significant mass effect. 2.Large left parietal scalp soft tissue swelling/hematoma and overlaying the secretions.. 3.No evidence of acute fracture in the cervical spine. The report is dictated by Vanesa Munoz Dr, MD (residential care officer) Salomon Lezama MD have personally reviewed and interpreted this examination/study. > Interpreting Provider: Salomon Dumas MD on 09/06/2023 4:13 PM Narrative 09/06/2023 4:13 PM CDT PROCEDURE: ??CT HEAD WO CONTRAST, CT CERVICAL SPINE WO CONTRAST, DATE/TIME OF EXAM: ??09/06/2023 3:36 PM, LOCATION ??[facility] INDICATION: W19.XXXA: Fall, initial encounter EXAMINATION: 1.Computed tomography (CT) of the head without contrast 2.CT of the cervical spine without contrast ADDITIONAL CLINICAL INFORMATION: Ordering Provider Reason For Exam: ??Fall, hematoma to head (accession [id number]), fall, syncope (accession [id number]) Technologist Note: ??None. Additional: ??None. TECHNIQUE: CT of the head and cervical spine was performed without contrast according to standard protocol. CT dose reduction technique was used, including Automated Exposure Control. COMPARISON: No prior study is available for comparison at the time of this dictation. FINDINGS: Head: No acute intra- or extra-axial fluid collections are identified. There is mild cerebral volume loss with associated ex vacuo ventricular dilatation. The basilar cisterns are patent. No mass effect or midline shift is seen. The ansari-white matter differentiation is normal. Periventricular white matter hypoattenuation is indicative of chronic small vessel ischemic disease. There is vascular calcification of the carotid siphons. Fat density within the superior orbital fissures may represent bilateral lipomas. Tiny fat densities in the supravermian cistern compatible with a small lipoma, extending along the medial falx bilaterally. No acute calvarial fracture is identified. The orbits appear normal. The paranasal sinuses are clear. The mastoid air cells are clear. No soft tissue abnormality is identified. There is a large left parietal soft tissue swelling/hematoma measuring up to 0.0 cm in thickness, (3, image 25), with overlaying skin lacerations. No underlying osseous fracture is identified. Cervical spine: There is gentle cervical kyphosis. Vertebral bodies are normal in height without evidence of acute fracture. Other than middle atlantoaxial joint osteoarthritis, the craniocervical junction appears normal. There is mild degenerative disc disease. Borderline developmental cervical spinal canal stenosis and superimposed multilevel degenerative disc disease, without high-grade spinal canal stenosis. There are varying degrees of mild facet osteoarthritis. There are varying degrees of mild uncovertebral joint osteoarthritis with the same degree of neural foraminal stenosis at these levels. No soft tissue abnormality is identified. Procedure Note Salomon Dumas MD - 09/06/2023 PROCEDURE: CT HEAD WO CONTRAST, CT CERVICAL SPINE WO CONTRAST,DATE/TIME OF EXAM: 09/06/2023 3:36 PM, LOCATION [facility] INDICATION: W19.XXXA: Fall, initial encounter EXAMINATION: 1.Computed tomography (CT) of the head without contrast 2.CT of the cervical spine without contrast ADDITIONAL CLINICAL INFORMATION: Ordering Provider Reason For Exam: Fall, hematoma to head (accession [id number]), fall, syncope (accession [id number]) Technologist Note: None. Additional: None. TECHNIQUE: CT of the head and cervical spine was performed withoutcontrast according to standard protocol. CT dose reduction technique was used, including Automated Exposure Control. COMPARISON: No prior study is available for comparison at the time ofthis dictation. FINDINGS: Head: No acute intra- or extra-axial fluid collections are identified. Thereis mild cerebral volume loss with associated ex vacuo ventriculardilatation. The basilar cisterns are patent. No mass effect or midline shift isseen. The ansari-white matter differentiation is normal. Periventricular white matter hypoattenuation is indicative of chronic small vessel ischemic disease. There is vascular calcification of the carotid siphons. Fat density within the superior orbital fissures may represent bilateral lipomas. Tiny fat densities in the supravermian cistern compatible witha small lipoma, extending along the medial falx bilaterally. No acute calvarial fracture is identified. The orbits appear normal. Theparanasal sinuses are clear. The mastoid air cells are clear. No soft tissue abnormality is identified. There is a large left parietal soft tissue swelling/hematoma measuring up to 0.0 cm in thickness, (3, image 25),with overlaying skin lacerations. No underlying osseous fracture isidentified. Cervical spine: There is gentle cervical kyphosis. Vertebral bodies are normal in height without evidence of acute fracture. Other than middle atlantoaxial joint osteoarthritis, the craniocervical junction appears normal. There ismild degenerative disc disease. Borderline developmental cervical spinalcanal stenosis and superimposed multilevel degenerative disc disease, without high-grade spinal canal stenosis. There are varying degrees of mildfacet osteoarthritis. There are varying degrees of mild uncovertebral joint osteoarthritis with the same degree of neural foraminal stenosis atthese levels. No soft tissue abnormality is identified. IMPRESSION: 1.No acute intracranial hemorrhage, midline shift, or significant mass effect. 2.Large left parietal scalp soft tissue swelling/hematoma and overlaying the secretions.. 3.No evidence of acute fracture in the cervical spine. The report is dictated by Vanesa Munoz Dr, MD (residential care officer) I, Salomon Dumas MD have personally reviewed and interpretedthis examination/study. > Interpreting Provider: Salomon Dumas MD on 09/06/2023 4:13 PM [address]sy Fish MD CT ORDERABLES * INFLUENZA A+B - POINT OF CARE (AMB) (02/25/2017 3:25 PM [employer]) Influenza A Antigen Rapid Negative Negative Influenza B Antigen Rapid Negative Negative Influenza Internal Control present NEGATIVE - POSITIVE Influenza Lot Number [id number] Influenza Expiration Date 06/03/2018 Other NASOPHARYNGEAL SWAB / Unknown 02/25/2017 3:25 PM [employer] Margaux Cote Kashif [employer]PER[employer] [facility] - POINT OF CARE ORDERABLES * STREP A SCREEN (06/25/2016) Strep A Rapid POCT Negative Negative Strep A Internal Control Present Lot # [id number] Expiration Date Throat ENTIRE THROAT (SURFACE REGION OF NECK) / Unknown 06/25/2016 Tigre Subramanian [employer] [facility] - POINT OF CARE ORDERABLES * PATHOLOGY TISSUE FOR DERMATOLOGY (02/12/2016 12:00 AM [employer]) Only the most recent of3 resultswithin the time period is included. Result CASE: [id number] PATIENT: ANNIE TATUM PATHOLOGIC DIAGNOSIS: A. Midline frontal hairline: BLUE NEVUS, COMMON TYPE PRESENT AT MARGIN (see microscopic description) B. Right popliteal fossa: JUNCTIONAL MELANOCYTIC PROLIFERATION; NOT PRESENT AT SAMPLED MARGIN (see microscopic description and comment) CLINICAL DATA: A: R/O dys nevus in pt with hx of MM vs blue nevus. B: R/O dys nevus in pt with hx of MM. Check margins. GROSS DESCRIPTION: A: ??Received is one formalin filled container labeled with the patients name and designated midline frontal hairline. The specimen consists of a shave biopsy measuring [id number], the margin is inked green, [id number]. Jar 0. B: ??Received is one formalin filled container labeled with the patients name and designated right popliteal fossa. The specimen consists of a shave biopsy measuring [id number], the margin is inked green. Jar 0. MICROSCOPIC DESCRIPTION: SPECIMEN ??A Within the dermis there are oval, spindle-shaped and dendritic melanocytes with melanophages. This lesion is present at the margin of the specimen. Additional deeper sections were obtained and reviewed. SPECIMEN ??B Sections show a small junctional melanocytic proliferation. ??There is a lentiginous proliferation of melanocytes between irregular nests. ??Scattered melanocytes show evidence of upward migration within the epidermis, which are highlighted on a MART-1/Melan A. There is pigmented parakeratosis. The melanocytes are large and have a forrest cytoplasm. COMMENT: ??Although the architecture of this lesion is reassuring, the cytology is worrisome. ??As this lesion appears completely excised in the sampled sections, clinicopathologic correlation is recommended as to complete removal. Electronically signed out by Rajni Posey M.D. 02/15/2016 3:02:36PM [facility] Comment: Performed at: Dermatopathology Laboratory [facility] - Department of Dermatology [address] [place] [address] [place] [address] Phone number: [phone] FAX: [phone] 02/12/2016 02/13/2016 Jamar Correa MD LAB - PATHOLOGY/CYTO LOGY ORDERABLES [facility] [address] [place] [address]. [facility] [place] [id number], [facility] [phone]
[2024-05-03 07:06] VITALS: BP 151/102; PULSE 107; RESP 18; TEMP 36.4; O2SAT 99
[2024-05-03 07:50] VITALS: BP 145/100; PULSE 90; RESP 12; TEMP 36.4; O2SAT 98
--- NOTE | 2024-05-03 07:54 | ED_ITS ---
HPI - General Adult General Chief complaint: GI Bleed Stated complaint: bleeding from rectum Time Seen by Provider: 05/03/24 07:33 History of Present Illness HPI narrative: 53-year-old female presenting to the emergency department for evaluation and for nausea vomiting diarrhea and rectal bleeding. It is patient states she started having the nausea vomiting diarrhea yesterday. Patient reports his last night she started having rectal bleeding. Patient reports she is passing bright red blood per rectum. Patient denies any prior history of GI bleed. Patient is not on any blood thinners. Patient denies have any current abdominal pain. Related Data Home Medications ?Medication ?Instructions ?Recorded ?Confirmed ?Last Taken ?Type dextroamphetamine-amphetamine 20 20 mg PO TID 01/01/22 01/01/22 Unknown History mg tablet (Adderall) Allergies Allergy/AdvReac Type Severity Reaction Status Date / Time fluticasone Allergy Unknown Hives Verified 05/03/24 07:01 Review of Systems 2 Review of Systems: All systems reviewed & are unremarkable except as noted in HPI and below PMFSH Past Medical History Medical History (Updated 05/03/24 @ 09:16 by Roger Field MD) Tobacco abuse HTN (hypertension) Surgical History Surgical History S/P skin biopsy Social History Social History Smoking packs per day: 0.5 Smoking cigarettes per day: 10.0 Years smoked: 40 Smoking pack-years: 20.00 Smoking status: Current every day smoker Tobacco type: cigarettes Alcohol intake: current Drinks per week: 5 Substance use: never Spiritual care concerns: No Exam 2 Narrative: APPEARANCE: Well appearing, no pain, no distress, well-nourished. HEAD: normocephalic, atraumatic. EYES: PERRLA/EOMI, conjunctivae clear. NOSE: Normal no drainage EARS:TMS clear with good light reflex. THROAT: Pharynx clear, no exudate. NECK: Supple. No adenopathy, no masses. RESPIRATORY: Airway patent, respirations nonlabored. Clear to auscultation bilaterally, no rales, rhonchi, wheezing. CARDIOVASCULAR: Regular rate and rhythm without murmurs rubs or gallops. ABDOMINAL: Increased bowel sounds, lower abdominal tenderness to palpation MUSCULOSKELETAL: Moves all extremities. Strength/ROM intact, No edema, No calf tenderness. NEURO: Alert. Cranial nerves II through XII intact. Good gait. Good coordination SKIN: Warm, dry. Normal Color Rectal exam: Bright red blood, no external hemorrhoids. Course Vital Signs Vital signs: Vital Signs Temperature 97.6 F 05/03/24 07:06 Pulse Rate 107 H 05/03/24 07:06 Respiratory Rate 18 05/03/24 07:06 Blood Pressure 151/102 H 05/03/24 07:06 Pulse Oximetry 99 05/03/24 07:06 Oxygen Delivery Room Air 05/03/24 07:06 Temperature 97.8 F 05/03/24 09:05 Pulse Rate 73 05/03/24 09:05 Respiratory Rate 14 05/03/24 09:05 Blood Pressure 177/98 H 05/03/24 09:05 Pulse Oximetry 100 05/03/24 09:05 Oxygen Delivery Room Air 05/03/24 07:06 Medical Decision Making MDM Narrative Medical decision making narrative: 53-year-old female presented to the emergency department for evaluation for nausea vomiting diarrhea and lower abdominal pain and rectal bleeding. Patient is afebrile with no leukocytosis and a stable hemoglobin of 16.5, patient has an INR 0.9, T bili was 1.5 AST was a for ALT was 91 alk phosphate was not elevated, UA did show leukocyte esterase positive urine, elevated white blood cell 11-20 with many squamous and high bacteria, urine culture was ordered. CT scan did show evidence of colitis. Patient will be started on Augmentin for the colitis and patient will be provided Zofran for nausea control. Patient family updated results of the workup and they are comfortable plan for discharge and close follow-up. All questions concerns were addressed patient was well-appearing at time of discharge. Differential Diagnosis Differential Diagnosis: Colitis, diverticulitis, internal hemorrhoids, external hemorrhoids, upper GI bleed, melena Vital Signs Vital Signs: Vital Signs Temperature 97.6 F 05/03/24 07:06 Pulse Rate 107 H 05/03/24 07:06 Respiratory Rate 18 05/03/24 07:06 Blood Pressure 151/102 H 05/03/24 07:06 Pulse Oximetry 99 05/03/24 07:06 Oxygen Delivery Room Air 05/03/24 07:06 Temperature 97.8 F 05/03/24 09:05 Pulse Rate 73 05/03/24 09:05 Respiratory Rate 14 05/03/24 09:05 Blood Pressure 177/98 H 05/03/24 09:05 Pulse Oximetry 100 05/03/24 09:05 Oxygen Delivery Room Air 05/03/24 07:06 Lab Data Lab results reviewed: Yes I reviewed the patient's lab results. 05/03/24 08:14 05/03/24 08:07 Labs: Lab Results 05/03/24 05/03/24 05/03/24 Range/Units 07:51 08:04 08:07 WBC (4.5-10.0) K/mm3 RBC (4.2-5.4) M/mm3 Hgb (12.0-15.0) g/dL Hct (37.0-47.0) % MCV (80-100) fl MCH (26-34) pg MCHC (32-36) g/dl RDW (11.5-14.5) % Plt Count (150-375) k/mm3 MPV (7.4-10.4) fl Immature Gran % (Auto) (0-0.5) % Neut % (Auto) (45.5-73.1) % Lymph % (Auto) (18.3-44.2) % [place] % (Auto) (2.6-8.5) % Eos % (Auto) (0-4.4) % Baso % (Auto) (0.2-1.2) % Lymph # (Auto) (0.9-3.2) K/mm3 [place] # (Auto) (0.1-0.6) K/mm3 Eos # (Auto) (0-0.3) K/mm3 Baso # (Auto) (0.0-0.1) K/mm3 Abs Immat Gran (auto) (0.00-0.031) K/mm3 Absolute Neuts (auto) (1.3-6.7) K/mm3 Absolute Nucleated RBC (0.0-0.012) K/mm3 Nucleated RBC % (0.0-0.2) % PT 12.4 (11.1-14.7) Seconds INR 0.9 APTT 27.0 (22.3-36.8) Seconds Sodium 138 (137-145) mmol/L Potassium 3.4 (3.4-5.0) mmol/L Chloride 94 L (98-107) mmol/L Carbon Dioxide 32 H (22-30) mmol/L Anion Gap 12 (4-12) mmol/L BUN 8 (7-17) mg/dL Creatinine 0.83 0.90 (0.7-1.0) mg/dL Estim Creat Clear Calc 62 57 ml/min Estimated GFR > 60 > 60 (59 - ) Glucose 115 H (65-110) mg/dL Calcium 10.4 H (8.4-10.2) mg/dL Total Bilirubin 1.5 H (0.2-1.3) mg/dL AST 84 H (14-36) U/L ALT 91 H (6-35) U/L Alkaline Phosphatase 94 (38-126) U/L Total Protein 9.0 H (6.3-8.2) g/dL Albumin 5.0 (3.5-5.1) g/dL Urine Color (Yellow) Urine Appearance (Clear) Urine pH (5.0-9.0) Ur Specific [place] (1.001-1.035) Urine Protein (Negative) mg/dL Urine Glucose (UA) (Negative) mg/dL Urine Ketones (Negative) mg/dL Ur Blood (Man) (Negative) Urine Nitrate (Negative) Urine Bilirubin (Negative) Urine Urobilinogen (<2.0) mg/dL Add Ur Microanalysis Leukocyte Esterase Rfl (Negative) ZOILA/UL Urine RBC (0-2) /hpf Urine WBC (0-3) /hpf Ur Squamous Epith Cells (Few) /hpf Urine Bacteria /hpf Urine Casts Hyaline Casts (None) /lpf POC Urine HCG, Qual Negative (Negative) Blood Type Cancelled Antibody Screen Cancelled 05/03/24 05/03/24 Range/Units 08:14 08:56 WBC 10.0 (4.5-10.0) K/mm3 RBC 4.72 (4.2-5.4) M/mm3 Hgb 16.5 H D (12.0-15.0) g/dL Hct 48.1 H (37.0-47.0) % MCV 101.9 H (80-100) fl MCH 35.0 H (26-34) pg MCHC 34.3 (32-36) g/dl RDW 12.1 (11.5-14.5) % Plt Count 183 (150-375) k/mm3 MPV 11.6 H (7.4-10.4) fl Immature Gran % (Auto) 0.3 (0-0.5) % Neut % (Auto) 76.1 H (45.5-73.1) % Lymph % (Auto) 16.1 L (18.3-44.2) % [place] % (Auto) 6.2 (2.6-8.5) % Eos % (Auto) 0.8 (0-4.4) % Baso % (Auto) 0.5 (0.2-1.2) % Lymph # (Auto) 1.60 (0.9-3.2) K/mm3 [place] # (Auto) 0.6 (0.1-0.6) K/mm3 Eos # (Auto) 0.1 (0-0.3) K/mm3 Baso # (Auto) 0.1 (0.0-0.1) K/mm3 Abs Immat Gran (auto) 0.03 (0.00-0.031) K/mm3 Absolute Neuts (auto) 7.6 H (1.3-6.7) K/mm3 Absolute Nucleated RBC 0.000 (0.0-0.012) K/mm3 Nucleated RBC % 0.0 (0.0-0.2) % PT (11.1-14.7) Seconds INR APTT (22.3-36.8) Seconds Sodium (137-145) mmol/L Potassium (3.4-5.0) mmol/L Chloride (98-107) mmol/L Carbon Dioxide (22-30) mmol/L Anion Gap (4-12) mmol/L BUN (7-17) mg/dL Creatinine (0.7-1.0) mg/dL Estim Creat Clear Calc ml/min Estimated GFR (59 - ) Glucose (65-110) mg/dL Calcium (8.4-10.2) mg/dL Total Bilirubin (0.2-1.3) mg/dL AST (14-36) U/L ALT (6-35) U/L Alkaline Phosphatase (38-126) U/L Total Protein (6.3-8.2) g/dL Albumin (3.5-5.1) g/dL Urine Color Yellow (Yellow) Urine Appearance Cloudy H (Clear) Urine pH 7.5 (5.0-9.0) Ur Specific [place] 1.008 (1.001-1.035) Urine Protein 1+ H (Negative) mg/dL Urine Glucose (UA) Negative (Negative) mg/dL Urine Ketones Negative (Negative) mg/dL Ur Blood (Man) Trace (Negative) Urine Nitrate Negative (Negative) Urine Bilirubin Negative (Negative) Urine Urobilinogen 0.2 (<2.0) mg/dL Add Ur Microanalysis Reviewed Leukocyte Esterase Rfl 1+ H (Negative) ZOILA/UL Urine RBC 0-2 (0-2) /hpf Urine WBC 11-20 H (0-3) /hpf Ur Squamous Epith Cells Many H (Few) /hpf Urine Bacteria 2+ H /hpf Urine Casts 6-10 Hyaline Casts Present (None) /lpf POC Urine HCG, Qual (Negative) Blood Type O Negative Antibody Screen Negative Imaging Data Radiologist's impression: Impressions Abdomen/Pelvis CT 05/03/24 08:22 IMPRESSION: 1. Thickened abnormal appearing colon involving the descending and sigmoid colon with surrounding inflammation and fluid, consistent with colitis, most likely infectious/inflammatory. Discharge Plan Discharge Clinical Impression: Nausea vomiting and diarrhea, Colitis Patient Disposition: Home, Self-Care Condition: Stable Instructions: Antibiotic Form, Clear Liquid Diet (ED), Acute Nausea and Vomiting (ED), Colitis (ED) Additional Instructions: Zofran as needed for nausea control. Clear liquid diet for the next 1-3 days. Antibiotic as directed for colitis. Have close follow-up with your primary care physician. If you have any worsening symptoms then please call or return to the emergency department. Patient Language: Greenlandic Prescriptions: New ondansetron 4 mg tablet,disintegrating 4 mg PO Q8H PRN (Reason: nausea and vomiting) Qty: 14 0RF amoxicillin-pot clavulanate 875-125 mg tablet 1 tablet PO Q12H 7 Days Qty: 14 0RF No Action dextroamphetamine-amphetamine [Adderall] 20 mg Tablet 20 mg PO TID Rx Instructions: administer doses at least 4-6 hours apart aspirin 81 mg capsule 81 mg PO DAILY Qty: 30 0RF hydrochlorothiazide 12.5 mg capsule 12.5 mg PO DAILY Qty: 30 0RF Follow-up/Referrals: Sotero Kapadia, [Primary Care Provider] -
[2024-05-03 08:07] LABS: BEDSIDEPREGUCG Negative (Negative)
[2024-05-03 08:08] LABS: Estimated CRCL calculation 57 ml/min; Estimated Glomerular Filt Rate > 60
[2024-05-03 08:15] LABS: INR 0.9; Prothrombin Time 12.4 Seconds (11.1-14.7)
[2024-05-03 08:25] LABS: Basophils Absolute Auto 0.1 K/mm3 (0.0-0.1); Basophils Percent Auto 0.5 % (0.2-1.2); Eosinophils Absolute Auto 0.1 K/mm3 (0-0.3); Eosinophils Percent Auto 0.8 % (0-4.4); Hematocrit 48.1 % (37.0-47.0); Hemoglobin 16.5 g/dL (12.0-15.0); Immature Granulocyte Absolute 0.03 K/mm3 (0.00-0.031); Immature Granulocyte Percent A 0.3 % (0-0.5); Lymphocytes Percent Auto 16.1 % (18.3-44.2); Mean Corpuscular HGB Conc 34.3 g/dl (32-36); Mean Corpuscular Volume 101.9 fl (80-100); Mean Platelet Volume 11.6 fl (7.4-10.4); Monocytes Absolute Auto 0.6 K/mm3 (0.1-0.6); Monocytes Percent Auto 6.2 % (2.6-8.5); Neutrophils Absolute Auto 7.6 K/mm3 (1.3-6.7); Neutrophils Percent Auto 76.1 % (45.5-73.1); Platelet Count Result 183 k/mm3 (150-375); Red Blood Count 4.72 M/mm3 (4.2-5.4); Red Cell Distribution Width 12.1 % (11.5-14.5)
[2024-05-03 08:37] LABS: Alanine Aminotransferase 91 U/L (6-35); Alkaline Phosphatase 94 U/L (38-126); Anion Gap 12 mmol/L (4-12); Aspartate Amino Transferase 84 U/L (14-36); Bilirubin,Total 1.5 mg/dL (0.2-1.3); Blood Urea Nitrogen 8 mg/dL (7-17); Calcium 10.4 mg/dL (8.4-10.2); Carbon Dioxide 32 mmol/L (22-30); Chloride 94 mmol/L (98-107); Estimated CRCL calculation 62 ml/min; Estimated Glomerular Filt Rate > 60; Glucose 115 mg/dL (65-110); Potassium 3.4 mmol/L (3.4-5.0); Sodium 138 mmol/L (137-145)
[2024-05-03 09:01] LABS: Add Urine Microscopic? YES; Appearance Urine Cloudy (Clear); Bacteria Urine 2+ /hpf; Bilirubin Urine Negative (Negative); Blood Urine Trace (Negative); Color Urine Yellow (Yellow); Glucose Urine UA Negative (Negative); Hyaline Casts Urine Present /lpf; Ketones Urine Negative (Negative); Leukocyte Esterase Ur 1+ LEU/UL (Negative); Need Manual Microscopic Reviewed; Nitrate Urine Negative (Negative); Protein Urine 1+ mg/dL (Negative); RBC Urine 0-2 /hpf (0-2); Specific Grav Ur 1.008 (1.001-1.035); Squamous Epithelial Cell Urine Many /hpf (Few); Urobilinogen Urine 0.2 mg/dL (<2.0); pH Urine 7.5 (5.0-9.0)
[2024-05-03] MEDS: SODIUM CHLORIDE 0.9% IV 1,000 ML 999 ML IV CONT (09:03)
[2024-05-03 09:05] VITALS: BP 177/98; PULSE 73; RESP 14; TEMP 36.6; O2SAT 100
[2024-05-03] MEDS: AMOXICILLIN/CLAVULANATE K 875-125 MG TAB 1 TABLET PO (09:21)
== END 2024-05-03 09:34 | disposition home or self-care (01) ==
PROVIDERS: Emergency Provider Emergency Medicine; PCP Internal Medicine
DX: K52.9 Noninfective gastroenteritis and colitis, unspecified (principal); R11.2 Nausea with vomiting, unspecified; F17.210 Nicotine dependence, cigarettes, uncomplicated; I10 Essential (primary) hypertension
CPT/HCPCS: 36415; 74177; 80053; 81001; 81025; 85025; 85610; 85730; 86850; 86900; 86901; 96360; 99284; A9270; J7030; Q9967